=== PATIENT | male | born 1960 | race Caucasian/White ===

== ENCOUNTER → 2016-08-06 | Day surgery (SDC) | payer OTHER ==
[~2016-08-06] VITALS: Ht 162.6 cm; Wt 65.8 kg
[~2016-08-06] MED LIST: BUPIVACAINE HCL 0.25% 30 ML VIAL As Ordered ONE; BUPIVACAINE HCL 0.25% 30 ML VIAL XX ONE; LIDOCAINE 2% INJ 100 MG/5 ML SDV (FOR ANES.) As Ordered ONE; LISI10TA4 PO; LR 1,000 ML IV SCH; MEPERIDINE INJ 25 MG/ML VIAL (J2175) IV PRN; METF1000 PO; METOCLOPRAMIDE INJ 10MG/2ML VIAL (J2765) IV PRN; MIDAZOLAM INJ 2 MG/2 ML VIAL (J2250) As Ordered ONE; NORCO, ANEXSIA 5/325MG TABLET (HYDROcodone/ACETAMINOPHEN) PO PRN; ONDANSETRON 4MG/2ML VIAL (J2405) IV PRN; PERCOCET 5MG/325MG TAB As Ordered ONE; PROPOFOL 200 MG/20 ML VIAL As Ordered ONE; ROCURONIUM BROMIDE 50 MG/5 ML VIAL As Ordered ONE; fentaNYL 100 MCG/2 ML INJECTION (J3010) IV PRN; fentaNYL 250 MCG/5 ML INJECTION (J3010) As Ordered ONE
[2016-08-06] MEDS: LR 1,000 ML IV SCH (09:25)
--- NOTE | 2016-08-06 09:38 | ECGEPIP ---
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
[2016-08-06] MEDS: PERCOCET 5MG/325MG TAB PO PRN ×2 (12:27→12:39)
[2016-08-06 14:00] VITALS: BP 135/75
--- NOTE | 2016-08-07 21:16 | RO ---
DATE OF PROCEDURE: 08/07/2016 PREOPERATIVE DIAGNOSIS: Symptomatic gallstones. POSTOPERATIVE DIAGNOSIS: Symptomatic gallstones. PROCEDURE PERFORMED: Laparoscopic cholecystectomy. SURGEON: Dr. Alarcon NETWORK SUPPORT MANAGER: ANESTHESIA: General. INDICATIONS FOR PROCEDURE: Patient is a 55-year-old man with a history of upper abdominal pain and ultrasound confirming cholelithiasis. He is now for a laparoscopic cholecystectomy. OPERATIVE PROCEDURE: The patient was placed supine on the operating table. He was placed under general endotracheal anesthesia. The patient's abdomen was prepped and draped in a sterile fashion. 0.25% Marcaine was infiltrated in each of the trocar sites. A short supraumbilical midline incision was made and deepened through the fascia and peritoneum under direct vision. A Brenden cannula was inserted and the abdomen was insufflated with carbon dioxide gas. The laparoscope was inserted. Initial examination showed a normal-appearing liver. Visualized loops of the small and large bowel were normal. The gallbladder was identified in the subhepatic space. The patient was tilted to a reverse Trendelenburg position and rolled to the left. Two 5 mm trocars were placed in the right upper quadrant and a third 5 mm trocar was placed in the left upper quadrant. Graspers were inserted. The gallbladder was grasped and elevated. Dissection was carried out at the gallbladder neck. The cystic duct was clearly identified and this was dissected free circumferentially. The duct was doubly clipped with hemoclips and divided. The cholecystic artery was also clearly identified and this was clipped and divided as well. The gallbladder was then dissected free from the gallbladder bed. The gallbladder was entered in the lateral aspect of the fundus and some bile was spilled into the subhepatic space. This was all suctioned from the subhepatic space and then irrigated till clear. The dissection of the gallbladder was completed and the gallbladder was placed in an Endopouch. Final inspection of the right upper quadrant revealed no bleeding and no bile leak. There was no residual bile staining. The patient was returned to a flat position. The abdomen was deflated and the trocars were removed. The gallbladder was recovered through the Brenden site. There were some stones palpable within the gallbladder. This was sent for permanent pathology. The fascia at the Brenden site was closed with #2-0 Vicryl. The skin incisions were all closed with buried #5-0 Vicryl and Steri-Strips. Light dressings were applied. The patient tolerated the procedure well. He was awakened in the operating room, extubated and moved to the recovery room in stable condition.
== END | disposition home or self-care (01) ==
LOC: EDSTATUS 06-27 08:44 → M SDC 07:58
PROVIDERS: ATTEND Surgery
DX: K80.20 Calculus of gallbladder without cholecystitis without obstruction (principal); I10 Essential (primary) hypertension; E11.9 Type 2 diabetes mellitus without complications; G89.29 Other chronic pain; G47.30 Sleep apnea, unspecified; Z72.0 Tobacco use; Z91.010 Allergy to peanuts; Z79.899 Other long term (current) drug therapy
CPT/HCPCS: 47562; 88304; 93005; J2250; J3010

== ENCOUNTER → 2016-10-30 | Outpatient (REF) | payer OTHER, SELFPAY ==
[~2016-10-30] MED LIST changes: -BUPIVACAINE HCL 0.25% 30 ML VIAL As Ordered ONE; -BUPIVACAINE HCL 0.25% 30 ML VIAL XX ONE; -LIDOCAINE 2% INJ 100 MG/5 ML SDV (FOR ANES.) As Ordered ONE; -LR 1,000 ML IV SCH; -MEPERIDINE INJ 25 MG/ML VIAL (J2175) IV PRN; -METOCLOPRAMIDE INJ 10MG/2ML VIAL (J2765) IV PRN; -MIDAZOLAM INJ 2 MG/2 ML VIAL (J2250) As Ordered ONE; -NORCO, ANEXSIA 5/325MG TABLET (HYDROcodone/ACETAMINOPHEN) PO PRN; -ONDANSETRON 4MG/2ML VIAL (J2405) IV PRN; -PERCOCET 5MG/325MG TAB As Ordered ONE; -PROPOFOL 200 MG/20 ML VIAL As Ordered ONE; -ROCURONIUM BROMIDE 50 MG/5 ML VIAL As Ordered ONE; -fentaNYL 100 MCG/2 ML INJECTION (J3010) IV PRN; -fentaNYL 250 MCG/5 ML INJECTION (J3010) As Ordered ONE
[2016-10-30 12:03] LABS: ALBUMIN 3.4 GM/DL (3.2-5.2); ALBUMIN/GLOBULIN RATIO 1.03 (1.00-1.93); ALKALINE PHOSPHATASE 72 U/L (45-117); ALT/SGPT 21 U/L (12-78); ANION GAP 8 MEQ/L (8-16); AST/SGOT 11 U/L (15-37); BILIRUBIN,TOTAL 0.5 MG/DL (0.2-1.0); BLOOD UREA NITROGEN 13 MG/DL (7-18); CALCIUM LEVEL 8.8 MG/DL (8.5-10.1); CARBON DIOXIDE LEVEL 28 MEQ/L (21-32); CHLORIDE LEVEL 101 MEQ/L (98-107); CHOLESTEROL LEVEL 196 MG/DL (<200); GLOMERULAR FILTRATION RATE > 60.0 (>56); GLUCOSE, FASTING 174 MG/DL (70-105); POTASSIUM SERUM 4.6 MEQ/L (3.5-5.1); SODIUM LEVEL 137 MEQ/L (136-145); TOTAL PROTEIN 6.7 GM/DL (6.4-8.2); TRIGLYCERIDES LEVEL 69 MG/DL (<150)
== END ==
LOC: M SFHCCLAY 07:11
PROVIDERS: ATTEND Family Medicine
DX: E11.65 Type 2 diabetes mellitus with hyperglycemia (principal); I10 Essential (primary) hypertension

== ENCOUNTER 2018-03-08 01:03 | Emergency (ER) | payer BC, SELFPAY ==
[2018-03-08] MEDS: HYDROMORPHONE HCL 0.5 MG/ 0.5 ML SYRINGE (J1170 PER 1) IM (02:15)
[2018-03-08] MEDS: methylPREDNISolone INJ 125 MG/2 ML VIAL (J2930) IM (02:15)
== END 2018-03-08 03:01 | disposition home or self-care (01) ==
LOC: M ED 01:03
DX: M79.2 Neuralgia and neuritis, unspecified (principal)
CPT/HCPCS: J2930

== ENCOUNTER → 2018-04-06 | Outpatient (REF) | payer BC ==
[2018-04-06 17:44] LABS: TOTAL 25(OH) VITAMIN D 31.9 NG/ML (30.0-100.0); VITAMIN B12 LEVEL 595 PG/ML (247-911)
[2018-04-06 17:52] LABS: BASO % 0.3 % (0.0-1.0); EOS # 0.3 10^3/uL (0.0-0.50); EOS % 4.3 % (0.0-3.0); HEMATOCRIT 43.2 % (42.0-52.0); HEMOGLOBIN 15.6 g/dl (13.5-17.5); IMMATURE GRANULOCYTE % 0.4 % (0-3.0); LYMPH # 1.4 10^3/uL (1.5-4.5); LYMPH % 20.1 % (24.0-44.0); MEAN CORPUSCULAR HEMOGLOBIN 31.6 pg (27.0-33.0); MEAN CORPUSCULAR HGB CONC 36.1 g/dl (32.0-36.5); MEAN CORPUSCULAR VOLUME 87.4 fl (80.0-96.0); MONO # 0.5 10^3/uL (0.0-0.8); MONO % 7.5 % (0.0-5.0); NEUTROPHILS # 4.6 10^3/uL (1.8-7.7); NEUTROPHILS % 67.4 % (36.0-66.0); PLATELET COUNT, AUTOMATED 291 10^3/uL (150-450); RED BLOOD COUNT 4.94 10^6/uL (4.30-6.10); RED CELL DISTRIBUTION WIDTH 13.2 % (11.5-14.5); WHITE BLOOD COUNT 6.8 10^3/uL (4.0-10.0)
[2018-04-06 22:41] LABS: MALB URINE SIEMENS 12.5 MG/L
[2018-04-06 23:54] LABS: CREATININE, URINE 95.5 MG/DL
[2018-04-06 23:55] LABS: MAU/CREAT RATIO 0.1 MCG/MG (0.0-30.0)
[2018-04-07 00:58] LABS: ALBUMIN 4.2 GM/DL (3.2-5.2); ALKALINE PHOSPHATASE 89 U/L (45-117); ALT/SGPT 27 U/L (12-78); ANION GAP 9 MEQ/L (8-16); AST/SGOT 10 U/L (7-37); BILIRUBIN,TOTAL 0.7 MG/DL (0.2-1.0); BLOOD UREA NITROGEN 12 MG/DL (7-18); CALCIUM LEVEL 9.3 MG/DL (8.5-10.1); CARBON DIOXIDE LEVEL 28 MEQ/L (21-32); CHLORIDE LEVEL 101 MEQ/L (98-107); CREATININE FOR GFR 0.74 MG/DL (0.70-1.30); GLOMERULAR FILTRATION RATE > 60.0 (>56); GLUCOSE, FASTING 312 MG/DL (70-100); HDL CHOLESTEROL 66 MG/DL (>40); POTASSIUM SERUM 4.8 MEQ/L (3.5-5.1); SODIUM LEVEL 138 MEQ/L (136-145); TOTAL PROTEIN 7.2 GM/DL (6.4-8.2); TRIGLYCERIDES LEVEL 91 MG/DL (<150)
[2018-04-07 01:38] LABS: ESTIMATED AVERAGE GLUCOSE 232 MG/DL (60-110); HEMOGLOBIN A1c 9.7 %
[2018-04-07 01:42] LABS: CHOLESTEROL LEVEL 213 MG/DL (<200); CHOLESTEROL RISK RATIO 3.227 (<5); LDL CHOLESTEROL 129 MG/DL (<100); NON-HDL-C 147 MG/DL
== END ==
LOC: M SFHCCAPE 07:40
DX: E11.65 Type 2 diabetes mellitus with hyperglycemia (principal); E78.2 Mixed hyperlipidemia; I10 Essential (primary) hypertension; R53.83 Other fatigue
CPT/HCPCS: 84443

== ENCOUNTER → 2018-09-02 | Outpatient (REF) | payer BC ==
[~2018-09-02] MED LIST changes: -METF1000 PO; +METF10004 PO; +PRED20TA PO
[2018-09-02 16:57] LABS: ALBUMIN 3.8 GM/DL (3.2-5.2); ALT/SGPT 18 U/L (12-78); BILIRUBIN,TOTAL 0.4 MG/DL (0.2-1.0); BLOOD UREA NITROGEN 12 MG/DL (7-18); CALCIUM LEVEL 8.6 MG/DL (8.5-10.1); CARBON DIOXIDE LEVEL 29 MEQ/L (21-32); CHLORIDE LEVEL 97 MEQ/L (98-107); CHOLESTEROL LEVEL 136 MG/DL (<200); CHOLESTEROL RISK RATIO 2.305 (<5); GLOMERULAR FILTRATION RATE > 60.0 (>56); GLUCOSE, FASTING 250 MG/DL (70-100); HDL CHOLESTEROL 59 MG/DL (>40); LDL CHOLESTEROL 66 MG/DL (<100); NON-HDL-C 77 MG/DL; POTASSIUM SERUM 4.3 MEQ/L (3.5-5.1); SODIUM LEVEL 134 MEQ/L (136-145); TOTAL PROTEIN 6.7 GM/DL (6.4-8.2); TRIGLYCERIDES LEVEL 54 MG/DL (<150)
[2018-09-02 17:11] LABS: HEMOGLOBIN A1c 8.3 %
== END ==
LOC: M SFHCCAPE 07:06
PROVIDERS: ATTEND Physician Assistant
DX: E11.65 Type 2 diabetes mellitus with hyperglycemia (principal); E78.2 Mixed hyperlipidemia

== ENCOUNTER → 2018-12-08 | Outpatient (REF) | payer BC ==
[2018-12-08 17:21] LABS: ALBUMIN 3.7 GM/DL (3.2-5.2); ALT/SGPT 29 U/L (12-78); BILIRUBIN,TOTAL 0.4 MG/DL (0.2-1.0); BLOOD UREA NITROGEN 11 MG/DL (7-18); CALCIUM LEVEL 8.7 MG/DL (8.5-10.1); CARBON DIOXIDE LEVEL 28 MEQ/L (21-32); CHLORIDE LEVEL 99 MEQ/L (98-107); CREATININE FOR GFR 0.76 MG/DL (0.70-1.30); GLOMERULAR FILTRATION RATE > 60.0 (>56); GLUCOSE, FASTING 304 MG/DL (70-100); POTASSIUM SERUM 4.5 MEQ/L (3.5-5.1); SODIUM LEVEL 135 MEQ/L (136-145); TOTAL PROTEIN 7.2 GM/DL (6.4-8.2)
[2018-12-08 17:39] LABS: MALB URINE SIEMENS 32.3 MG/L; MAU/CREAT RATIO 22.9 MCG/MG (0.0-30.0)
[2018-12-08 21:42] LABS: HEMOGLOBIN A1c 9.4 %
== END ==
LOC: M SFHCCAPE 07:04
PROVIDERS: ATTEND Physician Assistant
DX: E11.65 Type 2 diabetes mellitus with hyperglycemia (principal)

== ENCOUNTER → 2019-04-12 | Outpatient (REF) | payer BC ==
[2019-04-12 17:45] LABS: ALBUMIN 3.6 GM/DL (3.2-5.2); ALT/SGPT 18 U/L (12-78); BILIRUBIN,TOTAL 0.4 MG/DL (0.2-1.0); BLOOD UREA NITROGEN 15 MG/DL (7-18); CALCIUM LEVEL 9.1 MG/DL (8.5-10.1); CARBON DIOXIDE LEVEL 26 MEQ/L (21-32); CHLORIDE LEVEL 98 MEQ/L (98-107); CREATININE FOR GFR 0.86 MG/DL (0.70-1.30); GLOMERULAR FILTRATION RATE > 60.0 (>56); GLUCOSE, FASTING 423 MG/DL (70-100); POTASSIUM SERUM 4.9 MEQ/L (3.5-5.1); SODIUM LEVEL 133 MEQ/L (136-145); TOTAL PROTEIN 6.6 GM/DL (6.4-8.2)
[2019-04-12 18:52] LABS: HEMOGLOBIN A1c 7.9 %
== END ==
LOC: M SFHCCAPE 07:46
PROVIDERS: ATTEND Physician Assistant
DX: E11.65 Type 2 diabetes mellitus with hyperglycemia (principal)

== ENCOUNTER → 2019-07-13 | Outpatient (REF) | payer BC ==
[2019-07-13 16:57] LABS: ALBUMIN 3.9 GM/DL (3.2-5.2); ALT/SGPT 14 U/L (12-78); BILIRUBIN,TOTAL 0.5 MG/DL (0.2-1.0); BLOOD UREA NITROGEN 16 MG/DL (7-18); CALCIUM LEVEL 8.8 MG/DL (8.5-10.1); CARBON DIOXIDE LEVEL 27 MEQ/L (21-32); CHLORIDE LEVEL 103 MEQ/L (98-107); CHOLESTEROL LEVEL 182 MG/DL (<200); CHOLESTEROL RISK RATIO 2.843 (<5); CREATININE FOR GFR 0.79 MG/DL (0.70-1.30); GLOMERULAR FILTRATION RATE > 60.0 (>56); GLUCOSE, FASTING 154 MG/DL (70-100); HDL CHOLESTEROL 64 MG/DL (>40); LDL CHOLESTEROL 106 MG/DL (<100); NON-HDL-C 118 MG/DL; POTASSIUM SERUM 4.5 MEQ/L (3.5-5.1); SODIUM LEVEL 138 MEQ/L (136-145); TOTAL PROTEIN 7.1 GM/DL (6.4-8.2); TRIGLYCERIDES LEVEL 60 MG/DL (<150)
[2019-07-13 21:09] LABS: HEMOGLOBIN A1c 6.8 %
== END ==
LOC: M SFHCCAPE 07:28
PROVIDERS: ATTEND Physician Assistant
DX: E11.65 Type 2 diabetes mellitus with hyperglycemia (principal); E78.2 Mixed hyperlipidemia

== ENCOUNTER → 2019-07-16 | Outpatient (CLI) | payer BC ==
--- NOTE | 2019-07-16 09:31 | REP ---
INGUINAL ULTRASOUND: Real-time sonographic evaluation of inguinal canals performed at rest and with Valsalva maneuver. No inguinal hernia is seen. There is no evidence of cystic or solid mass. No fluid collection is seen. IMPRESSION: No sonographic evidence of inguinal hernia or mass bilaterally. Electronically Signed by Collin Quintanilla MD 07/16/2019 04:41 P
== END ==
LOC: M RAD 07:55
PROVIDERS: ATTEND Physician Assistant
DX: R19.09 Other intra-abdominal and pelvic swelling, mass and lump (principal)

== ENCOUNTER 2020-03-19 19:09 | Emergency (ER) | payer BC ==
[~2020-03-19] VITALS: Ht 162.6 cm; Wt 69.4 kg
[2020-03-19] MEDS ORDERED: LISI10TA4 (19:19)
[2020-03-19] MEDS ORDERED: MELO15TA28 (19:19)
[2020-03-19] MEDS ORDERED: METF10004 (19:19)
[2020-03-19] MEDS ORDERED: GABA600T4 (19:19)
[2020-03-19] MEDS ORDERED: TIZA4TAB4 (19:19)
[2020-03-19 20:10] LABS: BASO % 0.2 % (0.0-1.0); EOS # 0.2 10^3/uL (0.0-0.5); EOS % 2.8 % (0.0-3.0); HEMATOCRIT 36.6 % (42.0-52.0); HEMOGLOBIN 13.2 g/dl (13.5-17.5); LYMPH # 1.5 10^3/uL (1.5-5.0); MEAN CORPUSCULAR HEMOGLOBIN 31.7 pg (27.0-33.0); MEAN CORPUSCULAR HGB CONC 36.1 g/dl (32.0-36.5); MONO # 0.8 10^3/uL (0.0-0.8); MONO % 8.9 % (0.0-5.0); NEUTROPHILS % 69.6 % (36.0-66.0); PLATELET COUNT, AUTOMATED 246 10^3/uL (150-450); RED BLOOD COUNT 4.16 10^6/uL (4.30-6.10); WHITE BLOOD COUNT 8.6 10^3/uL (4.0-10.0)
[2020-03-19 20:20] LABS: INR 0.97; PROTHROMBIN TIME 13.1 SECONDS (11.8-14.0)
[2020-03-19 20:38] LABS: ALBUMIN 3.7 GM/DL (3.2-5.2); ALT/SGPT 17 U/L (12-78); BILIRUBIN,DIRECT 0.1 MG/DL (0.0-0.2); BILIRUBIN,TOTAL 0.3 MG/DL (0.2-1.0); CK-MB VALUE MASS 2.6 NG/ML (<3.6); CPK CREATINE PHOSPHOKINASE 99 U/L (39-308); LIPASE 142 U/L (73-393); MB/CK RELATIVE INDEX 2.63 (< OR =4); TOTAL PROTEIN 6.9 GM/DL (6.4-8.2); TROPONIN I < 0.02 NG/ML (< 0.10)
[2020-03-19] MEDS ORDERED: ISOVUE-370 76% 100ML VIAL As Ordered ONE (21:02)
--- NOTE | 2020-03-19 22:16 | REPVR ---
PROCEDURE INFORMATION: Exam: CT Abdomen And Pelvis With Contrast Exam date and time: 03/19/2020 9:40 PM Age: 59 years old Clinical indication: Abdominal pain; Generalized; Additional info: Abd pain x1 month TECHNIQUE: Imaging protocol: Computed tomography of the abdomen and pelvis with intravenous contrast. Radiation optimization: All CT scans at this facility use at least one of these dose optimization techniques: automated exposure control; mA and/or kV adjustment per patient size (includes targeted exams where dose is matched to clinical indication); or iterative reconstruction. Contrast material: ISOVUE 370; Contrast volume: 100 ml; Contrast route: INTRAVENOUS (IV); COMPARISON: Pelvis, limited US 07/16/2019 8:09 AM FINDINGS: Lungs: No suspicious mass or airspace process in the visualized lung bases. Liver: Right hepatic lobe posterior dome subcapsular demonstrates a 3.7 x 1.4 x 1.5 cm lesion with focal bile duct dilatation. This appears adjacent to the portal vessels but does not appear to be related to vascular thrombosis Gallbladder and bile ducts: Gallbladder is surgically absent. Pancreas: Pancreas appears normal. No focal mass or peripancreatic inflammation. Spleen: Spleen appears homogeneous without focal mass. Adrenals: Adrenal glands are normal in appearance. Kidneys and ureters: Kidneys appear normal, with no stone, solid mass or hydronephrosis. Stomach and bowel: No evidence of small bowel obstruction. Diverticular changes are present within the colon without inflammation. Appendix: Normal caliber appendix is identified, with no adjacent inflammation. Intraperitoneal space: No pneumoperitoneum. Vasculature: No aortic aneurysm. Main portal and splenic veins enhance normally. Lymph nodes: No enlarged lymph nodes. Bladder: Urinary bladder appears normal. Reproductive: No enlargement of the prostate. Bones/joints: Bony structures show no acute fracture or destructive process. Soft tissues: Fat containing umbilical hernia is present. IMPRESSION: Subcapsular posterior right lobe hepatic ovoid lesion with adjacent bile duct dilatation. Appearance is not pathognomonic for any particular entity. Inflammatory or neoplastic process could give this appearance. It could represent intraductal papillary neoplasm of bile duct. Consider hepatic MRI when clinically feasible Electronically signed by: Shad Duarte On 03/19/2020 22:17:07 PM
[2020-03-19 23:14] VITALS: BP 150/89
--- NOTE | 2020-04-10 17:25 | ECGEPIP ---
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
== END 2020-03-19 23:14 | disposition home or self-care (01) ==
LOC: M ED 19:09
DX: K76.9 Liver disease, unspecified (principal); E11.9 Type 2 diabetes mellitus without complications; G89.29 Other chronic pain; M54.9 Dorsalgia, unspecified; Z79.899 Other long term (current) drug therapy; Z79.84 Long term (current) use of oral hypoglycemic drugs; Z91.010 Allergy to peanuts; F17.290 Nicotine dependence, other tobacco product, uncomplicated
CPT/HCPCS: 36415; 74177; 80047; 80076; 81001; 82550; 82553; 83690; 84484; 85025; 85610; 85730; 93005; 99284; Q9967

== ENCOUNTER → 2020-03-23 | Outpatient (REF) | payer BC ==
[~2020-03-23] MED LIST changes: +GABA600T4; +LISI10TA4; +MELO15TA28; +METF10004; +TIZA4TAB4
[2020-03-23 15:31] LABS: BLOOD UREA NITROGEN 11 MG/DL (7-18); CREATININE FOR GFR 0.89 MG/DL (0.70-1.30); GLOMERULAR FILTRATION RATE > 60.0 (>56)
== END ==
LOC: M LABDRAWC 07:12
PROVIDERS: ATTEND Physician Assistant
DX: D37.6 Neoplasm of uncertain behavior of liver, gallbladder and bile ducts (principal)

== ENCOUNTER → 2020-03-24 | Outpatient (CLI) | payer BC ==
[~2020-03-24] MED LIST changes: +PROHANCE 279.3MG/ML 15ML VIAL As Ordered ONE
--- NOTE | 2020-03-24 09:21 | REPVR ---
PROCEDURE INFORMATION: Exam: MR Abdomen Without and With Contrast Exam date and time: 03/24/2020 8:26 AM Age: 59 years old Clinical indication: Abnormal findings; Abnormal radiologic finding of the abdomen; Radiologic exam and body structure: CT abd/pel; Additional info: Liver lesion, with bile duct dilation TECHNIQUE: Imaging protocol: MR of the abdomen without and with intravenous contrast. Contrast material: PROHANCE; Contrast volume: 13 ml; Contrast route: INTRAVENOUS (IV); COMPARISON: CT ABD/PEL W/IV CONTRAST ONLY 03/19/2020 9:28 PM FINDINGS: Liver: Posterior medial hepatic segment 8 geographic atrophy with biliary duct ectasia redemonstrated. No mass identified. Delayed, wedge-like postcontrast enhancement. Gallbladder and bile ducts: The gallbladder is surgically absent. Pancreas: 3.9 mm pancreatic uncinate process cyst. Four pancreatic tail cysts, largest 3.8 mm. Small pancreatic cysts. Spleen: Unremarkable. No splenomegaly. Adrenals: Unremarkable. No mass. Kidneys and ureters: Unremarkable. No solid mass. No hydronephrosis. Stomach and bowel: Visualized stomach and intestines are unremarkable. Intraperitoneal space: No free fluid. Arteries: No abdominal aortic aneurysm. Bones/joints: 14.7 mm T12 vertebral body hemangioma. Soft tissues: Unremarkable. IMPRESSION: 1. Focal hepatic geographic atrophy with biliary duct ectasia redemonstrated, presumably result of prior vascular or traumatic insult. No mass identified. 2. Small pancreatic cysts. Recommend CT or MRI in 2-3 years, for exclusion of intraductal papillary mucinous neoplasia (Vish et al, Pancreatology 12 (2012) [id number]). 3. Prior cholecystectomy. Electronically signed by: Gopi Whitlock On 03/24/2020 09:21:14 AM
== END ==
LOC: M RAD 07:13
PROVIDERS: ATTEND Physician Assistant
DX: D37.6 Neoplasm of uncertain behavior of liver, gallbladder and bile ducts (principal); K86.2 Cyst of pancreas
CPT/HCPCS: 74183; A9576

== ENCOUNTER → 2020-04-26 | Outpatient (CLI) | payer BC ==
[~2020-04-26] MED LIST changes: -PROHANCE 279.3MG/ML 15ML VIAL As Ordered ONE
--- NOTE | 2020-05-03 08:31 | REP ---
TWO-VIEW CHEST HISTORY: Chest wall pain, right upper quadrant abdominal pain. TECHNIQUE: Two views of the chest are performed. COMPARISON: I have no prior study for comparison. FINDINGS: I see no evidence of acute infiltrate. Pleural thickening is seen inferiorly on the right. Heart is normal in size and there is mild tortuosity of the thoracic aorta. The mediastinal silhouette is otherwise unremarkable. There are multiple old healed rib fractures superiorly on the right. There are mild degenerative changes of the spine. I see no other significant finding. IMPRESSION: Multiple old healed right rib fractures with mild pleural thickening at the right costophrenic angle. No evidence of acute pulmonary disease. MTDD
== END ==
LOC: M CLY 10:23
PROVIDERS: ATTEND Physician Assistant
DX: R07.89 Other chest pain (principal); Z87.81 Personal history of (healed) traumatic fracture

== ENCOUNTER → 2020-05-24 | Outpatient (REF) | payer BC ==
[2020-05-24 11:23] LABS: BASO % 0.3 % (0.0-1.0); EOS # 0.4 10^3/uL (0.0-0.5); EOS % 5.6 % (0.0-3.0); HEMATOCRIT 38.9 % (42.0-52.0); HEMOGLOBIN 13.5 g/dl (13.5-17.5); LYMPH # 1.3 10^3/uL (1.5-5.0); LYMPH % 20.7 % (24.0-44.0); MEAN CORPUSCULAR HEMOGLOBIN 31.8 pg (27.0-33.0); MEAN CORPUSCULAR HGB CONC 34.7 g/dl (32.0-36.5); MEAN CORPUSCULAR VOLUME 91.5 fl (80.0-96.0); MONO # 0.6 10^3/uL (0.0-0.8); MONO % 9.1 % (0.0-5.0); NEUTROPHILS # 4.1 10^3/uL (1.5-8.5); PLATELET COUNT, AUTOMATED 269 10^3/uL (150-450); RED BLOOD COUNT 4.25 10^6/uL (4.30-6.10); WHITE BLOOD COUNT 6.4 10^3/uL (4.0-10.0)
[2020-05-24 11:52] LABS: ALBUMIN 3.6 GM/DL (3.2-5.2); ALT/SGPT 22 U/L (12-78); BILIRUBIN,TOTAL 0.5 MG/DL (0.2-1.0); BLOOD UREA NITROGEN 19 MG/DL (7-18); CALCIUM LEVEL 8.9 MG/DL (8.5-10.1); CARBON DIOXIDE LEVEL 27 MEQ/L (21-32); CHLORIDE LEVEL 104 MEQ/L (98-107); CHOLESTEROL LEVEL 195 MG/DL (<200); CHOLESTEROL RISK RATIO 3.679 (<5); CREATININE FOR GFR 0.84 MG/DL (0.70-1.30); GLOMERULAR FILTRATION RATE > 60.0 (>56); GLUCOSE, FASTING 140 MG/DL (70-100); HDL CHOLESTEROL 53 MG/DL (>40); LDL CHOLESTEROL 112 MG/DL (<100); NON-HDL-C 142 MG/DL; POTASSIUM SERUM 4.8 MEQ/L (3.5-5.1); SODIUM LEVEL 135 MEQ/L (136-145); TRIGLYCERIDES LEVEL 149 MG/DL (<150)
[2020-05-24 11:57] LABS: MALB URINE SIEMENS 59.5 MG/L; MAU/CREAT RATIO 11.8 MCG/MG (0.0-30.0)
[2020-05-24 14:28] LABS: HEMOGLOBIN A1c 6.8 %
== END ==
LOC: M SFHCCLAY 07:52
PROVIDERS: ATTEND Physician Assistant
DX: E11.65 Type 2 diabetes mellitus with hyperglycemia (principal); E78.2 Mixed hyperlipidemia

== ENCOUNTER → 2020-06-26 | Outpatient (CLI) | payer BC ==
--- NOTE | 2020-06-26 22:00 | REP ---
INDICATION: CHEST WALL PAIN PLEURAL THICKENING COMPARISON: None TECHNIQUE: Axial noncontrast images from the thoracic inlet to the upper abdomen with coronal and sagittal reformations. This CT examination was performed using the following dose reduction techniques: Automated exposure control, adjustment of mA and/or kv according to the patient's size, and use of iterative reconstruction technique. FINDINGS: The bilateral lung narayan are relatively well aerated and essentially clear. Old healed right rib fractures are identified with subtle adjacent areas of pleural scarring. 2.5 Mm noncalcified nodule in the right middle lobe (series 201; image 52). No further consolidation, suspicious nodule or mass lesion. No pleural effusion. No pneumothorax. Tracheobronchial tree is patent. No significant adenopathy. Minimal atherosclerotic changes to the thoracic aorta and coronary arteries noted without aortic aneurysm or cardiomegaly. No pericardial effusion. Limited upper abdomen demonstrates normal bilateral adrenal glands and evidence for prior cholecystectomy. IMPRESSION: 1. Old right rib fractures and adjacent mild pleural scarring. 2. 2.5 mm noncalcified nodule in the right middle lobe. Low risk patients require no further investigation while high risk patients may warrant 12 month follow-up examination. <Electronically signed by Trino Rhodes > 06/26/20 [id number]
== END ==
LOC: M RAD 16:59
PROVIDERS: ATTEND Physician Assistant
DX: J92.9 Pleural plaque without asbestos (principal); R10.11 Right upper quadrant pain; R07.89 Other chest pain

== ENCOUNTER → 2022-03-25 | Outpatient (REF) | payer BC ==
[~2022-03-25] MED LIST changes: +LISI10TA22; +LISI10TA22 PO; -LISI10TA4; -LISI10TA4 PO; +TIZA10TA; -TIZA4TAB4
[2022-03-25 17:27] LABS: BASO % 0.3 % (0.0-1.0); EOS # 0.3 10^3/uL (0.0-0.5); EOS % 4.3 % (0.0-3.0); HEMATOCRIT 42.1 % (42.0-52.0); HEMOGLOBIN 14.8 g/dl (13.5-17.5); LYMPH # 0.9 10^3/uL (1.5-5.0); LYMPH % 13.5 % (24.0-44.0); MEAN CORPUSCULAR HEMOGLOBIN 31.4 pg (27.0-33.0); MEAN CORPUSCULAR HGB CONC 35.2 g/dl (32.0-36.5); MEAN CORPUSCULAR VOLUME 89.4 fl (80.0-96.0); MONO # 0.5 10^3/uL (0.0-0.8); MONO % 7.5 % (2.0-8.0); NEUTROPHILS # 5.1 10^3/uL (1.5-8.5); NEUTROPHILS % 74.1 % (36.0-66.0); PLATELET COUNT, AUTOMATED 264 10^3/uL (150-450); RED BLOOD COUNT 4.71 10^6/uL (4.30-6.10); WHITE BLOOD COUNT 6.8 10^3/uL (4.0-10.0)
[2022-03-25 18:49] LABS: CREATININE, URINE 96.3 MG/DL; MAU/CREAT RATIO 10.3 MCG/MG (0.0-30.0)
[2022-03-25 20:03] LABS: ALBUMIN 3.4 GM/DL (3.2-5.2); ALT/SGPT 19 U/L (12-78); BILIRUBIN,TOTAL 0.5 MG/DL (0.2-1.0); BLOOD UREA NITROGEN 14 MG/DL (7-18); CALCIUM LEVEL 9.3 MG/DL (8.8-10.2); CARBON DIOXIDE LEVEL 28 MEQ/L (21-32); CHLORIDE LEVEL 100 MEQ/L (98-107); CHOLESTEROL LEVEL 194 MG/DL (<200); CREATININE FOR GFR 0.86 MG/DL (0.70-1.30); GLOMERULAR FILTRATION RATE > 60.0 (>49); GLUCOSE, FASTING 326 MG/DL (70-100); HDL CHOLESTEROL 52 MG/DL (>40); LDL CHOLESTEROL 118 MG/DL (<100); NON-HDL-C 142 MG/DL; POTASSIUM SERUM 4.5 MEQ/L (3.5-5.1); SODIUM LEVEL 134 MEQ/L (136-145); TOTAL PROTEIN 7.1 GM/DL (6.4-8.2); TRIGLYCERIDES LEVEL 121 MG/DL (<150)
[2022-03-25 20:36] LABS: HEMOGLOBIN A1c 10.5 %
[2022-03-25 20:42] LABS: TOTAL 25(OH) VITAMIN D 26.4 NG/ML (30.0-100.0)
== END ==
LOC: M SFHCCAPE 07:29
PROVIDERS: ATTEND Physician Assistant
DX: Z00.00 Encounter for general adult medical examination without abnormal findings (principal); Z79.899 Other long term (current) drug therapy

== ENCOUNTER → 2022-05-10 | Outpatient (REF) | payer BC ==
[2022-05-10 11:54] LABS: HEMOGLOBIN A1c 8.3 %
[2022-05-10 12:31] LABS: BLOOD UREA NITROGEN 16 MG/DL (7-18); CREATININE FOR GFR 0.82 MG/DL (0.70-1.30); GLOMERULAR FILTRATION RATE > 60.0 (>49)
== END ==
LOC: M SFHCCLAY 07:17
PROVIDERS: ATTEND Physician Assistant
DX: E11.65 Type 2 diabetes mellitus with hyperglycemia (principal); K86.2 Cyst of pancreas

== ENCOUNTER → 2022-05-13 | Outpatient (CLI) | payer BC ==
[~2022-05-13] MED LIST changes: +PROHANCE 279.3MG/ML 15ML VIAL ONE
== END ==
LOC: M PLAIMG 12:30
PROVIDERS: ATTEND Physician Assistant
DX: K86.2 Cyst of pancreas (principal)

== ENCOUNTER → 2022-07-03 | Outpatient (REF) | payer BC ==
[~2022-07-03] MED LIST changes: -PROHANCE 279.3MG/ML 15ML VIAL ONE
[2022-07-03 18:16] LABS: MAGNESIUM LEVEL 1.5 MG/DL (1.8-2.4)
[2022-07-03 18:18] LABS: ALBUMIN 3.7 G/DL (3.2-5.2); ALKALINE PHOSPHATASE 61 U/L (46-116); ALT/SGPT 18 U/L (7.0-40); AST/SGOT 14 U/L (<34); BILIRUBIN,TOTAL 0.5 MG/DL (0.3-1.2); BLOOD UREA NITROGEN 17 MG/DL (9-23); CARBON DIOXIDE LEVEL 28 MMOL/L (20-31); CHLORIDE LEVEL 102 MMOL/L (98-107); CHOLESTEROL LEVEL 119 MG/DL (<200); CHOLESTEROL RISK RATIO 2.42 (<5); CREATININE FOR GFR 0.83 MG/DL (0.70-1.30); GLOMERULAR FILTRATION RATE > 60.0 (>49); GLUCOSE, FASTING 152 MG/DL (74-106); HDL CHOLESTEROL 49.1 MG/DL (>40); LDL CHOLESTEROL 58.7 MG/DL (<100); NON-HDL-C 70 MG/DL; POTASSIUM SERUM 5.2 MMOL/L (3.5-5.1); SODIUM LEVEL 135 MMOL/L (136-145); TOTAL PROTEIN 6.6 G/DL (5.7-8.2); TRIGLYCERIDES LEVEL 56 MG/DL (<150)
[2022-07-03 23:33] LABS: HEMOGLOBIN A1c 6.9 % (4.0-6.0)
== END ==
LOC: M SFHCCAPE 07:31
PROVIDERS: ATTEND Physician Assistant
DX: Z00.00 Encounter for general adult medical examination without abnormal findings (principal); E78.2 Mixed hyperlipidemia; I10 Essential (primary) hypertension; E11.65 Type 2 diabetes mellitus with hyperglycemia
CPT/HCPCS: 80053; 80061; 83036; 83735; G0103

== ENCOUNTER → 2022-07-15 | Outpatient (CLI) | payer BC ==
[~2022-07-15] MED LIST changes: -GABA600T4; +GABA600T4 PO; -LISI10TA22; -MELO15TA28; +MELO15TA28 PO; -METF10004
== END ==
LOC: M LABSMTC 09:33
PROVIDERS: ATTEND Anesthesiology
DX: Z01.812 Encounter for preprocedural laboratory examination (principal); Z11.52 Encounter for screening for COVID-19

== ENCOUNTER 2022-07-19 10:47 | Day surgery (SDC) | payer BC ==
[~2022-07-19] VITALS: Ht 162.6 cm; Wt 66.3 kg
[~2022-07-19 10:47] MED LIST changes: +NS 1,000 ML IV ONE
[2022-07-19] MEDS ORDERED: D5W/0.45% SODIUM CHLORIDE 1,000 ML IV SCH (12:20)
[2022-07-19 13:05] VITALS: BP 97/57
== END 2022-07-19 13:16 | disposition home or self-care (01) ==
LOC: M OPP 10:47
PROVIDERS: ATTEND Surgery
DX: R19.5 Other fecal abnormalities (principal); K64.2 Third degree hemorrhoids; K57.30 Diverticulosis of large intestine without perforation or abscess without bleeding; Z80.0 Family history of malignant neoplasm of digestive organs; Z79.52 Long term (current) use of systemic steroids; Z79.84 Long term (current) use of oral hypoglycemic drugs; Z79.899 Other long term (current) drug therapy; Z91.010 Allergy to peanuts; E11.9 Type 2 diabetes mellitus without complications; G47.33 Obstructive sleep apnea (adult) (pediatric); I10 Essential (primary) hypertension; Z87.891 Personal history of nicotine dependence

== ENCOUNTER → 2022-10-03 | Outpatient (CLI) | payer BC ==
[~2022-10-03] MED LIST changes: -NS 1,000 ML IV ONE
== END ==
LOC: M LABSMTC 11:24
PROVIDERS: ATTEND Anesthesiology
DX: Z01.812 Encounter for preprocedural laboratory examination (principal); Z20.822 Contact with and (suspected) exposure to COVID-19

== ENCOUNTER 2022-10-08 06:20 | Day surgery (SDC) | payer BC ==
[~2022-10-08] VITALS: Ht 162.6 cm; Wt 69.4 kg
[~2022-10-08 06:20] MED LIST changes: +JARD1TAB PO; +PROPARACAINE 0.5% OPHTH SOL 15ML OS ONE
[2022-10-08] MEDS ORDERED: LIDOCAINE 1% SDV 5ML VIAL As Ordered ONE (06:39)
[2022-10-08] MEDS ORDERED: CEFUROXIME 1MG/0.1ML INTRACAMERAL INJ As Ordered ONE (06:40)
[2022-10-08] MEDS ORDERED: BSS IRR 500ML/OMIDRIA 4ML IRR BAG (OR ONLY) As Ordered ONE (06:52)
[2022-10-08] MEDS ORDERED: MIDAZOLAM INJ 2MG/2ML VIAL As Ordered ONE (07:00)
[2022-10-08] MEDS ORDERED: fentaNYL 100 MCG/2 ML INJECTION As Ordered ONE (07:00)
[2022-10-08] MEDS: CYCLOPENTOLATE 1% OPHTH SOLN 2ML BTL OS SCH ×3 (08:06→08:54)
[2022-10-08] MEDS: OFLOXACIN 0.3 % (OCUFLOX) OPTH SOL 5ML OS SCH ×3 (08:06→08:54)
[2022-10-08] MEDS: PHENYLEPHRINE 2.5% OPHTH SOL 2ML OS SCH ×2 (08:07→08:54)
[2022-10-08] MEDS: TROPICAMIDE 1% OPHTH SOLN 15ML OS SCH ×2 (08:07→08:54)
[2022-10-08 08:39] VITALS: BP 136/77
== END 2022-10-08 09:03 | disposition home or self-care (01) ==
LOC: M SDC 06:20
PROVIDERS: ATTEND Ophthalmology
DX: H25.12 Age-related nuclear cataract, left eye (principal); I10 Essential (primary) hypertension; R01.1 Cardiac murmur, unspecified; E11.9 Type 2 diabetes mellitus without complications; G47.30 Sleep apnea, unspecified; Z91.010 Allergy to peanuts; Z79.899 Other long term (current) drug therapy; Z79.84 Long term (current) use of oral hypoglycemic drugs
CPT/HCPCS: 66984; J0697; J1097; J2250; J3010; V2632

== ENCOUNTER → 2022-10-17 | Outpatient (REF) | payer BC ==
[~2022-10-17] MED LIST changes: -PROPARACAINE 0.5% OPHTH SOL 15ML OS ONE
[2022-10-17 17:27] LABS: BASO % 0.3 % (0.0-1.0); EOS # 0.3 10^3/uL (0.0-0.5); EOS % 4.9 % (0.0-3.0); HEMATOCRIT 39.7 % (42.0-52.0); HEMOGLOBIN 13.6 g/dl (13.5-17.5); LYMPH # 1.3 10^3/uL (1.5-5.0); LYMPH % 19.6 % (24.0-44.0); MEAN CORPUSCULAR HEMOGLOBIN 30.7 pg (27.0-33.0); MEAN CORPUSCULAR HGB CONC 34.3 g/dl (32.0-36.5); MEAN CORPUSCULAR VOLUME 89.6 fl (80.0-96.0); MONO # 0.5 10^3/uL (0.0-0.8); MONO % 7.8 % (2.0-8.0); NEUTROPHILS # 4.5 10^3/uL (1.5-8.5); NEUTROPHILS % 67.1 % (36.0-66.0); PLATELET COUNT, AUTOMATED 258 10^3/uL (150-450); RED BLOOD COUNT 4.43 10^6/uL (4.30-6.10); WHITE BLOOD COUNT 6.7 10^3/uL (4.0-10.0)
[2022-10-17 17:38] LABS: HEMOGLOBIN A1c 7.8 % (4.0-6.0)
[2022-10-17 17:55] LABS: ALBUMIN 3.6 G/DL (3.2-5.2); ALKALINE PHOSPHATASE 72 U/L (46-116); ALT/SGPT 23 U/L (7.0-40); AST/SGOT 15 U/L (<34); BILIRUBIN,TOTAL 0.5 MG/DL (0.3-1.2); BLOOD UREA NITROGEN 22 MG/DL (9-23); CALCIUM LEVEL 9.2 MG/DL (8.3-10.6); CARBON DIOXIDE LEVEL 27 MMOL/L (20-31); CHLORIDE LEVEL 102 MMOL/L (98-107); CREATININE FOR GFR 0.84 MG/DL (0.70-1.30); GLOMERULAR FILTRATION RATE > 60.0 (>49); GLUCOSE, FASTING 178 MG/DL (74-106); MAGNESIUM LEVEL 1.6 MG/DL (1.8-2.4); POTASSIUM SERUM 5.2 MMOL/L (3.5-5.1); SODIUM LEVEL 136 MMOL/L (136-145); TOTAL PROTEIN 6.5 G/DL (5.7-8.2)
== END ==
LOC: M SFHCCAPE 07:16
PROVIDERS: ATTEND Physician Assistant
DX: E83.42 Hypomagnesemia (principal); E11.65 Type 2 diabetes mellitus with hyperglycemia

== ENCOUNTER → 2024-09-20 | Outpatient (REF) | payer OTHER ==
[~2024-09-20] MED LIST changes: +GABA-1490 PO; -GABA600T4 PO
[2024-09-20 16:46] LABS: BASO % 0.3 % (0.0-1.0); EOS # 0.3 10^3/uL (0.0-0.5); EOS % 4.2 % (0.0-3.0); HEMATOCRIT 42.9 % (42.0-52.0); HEMOGLOBIN 15.1 g/dl (13.5-17.5); LYMPH # 1.4 10^3/uL (1.5-5.0); LYMPH % 22.8 % (24.0-44.0); MEAN CORPUSCULAR HEMOGLOBIN 31.6 pg (27.0-33.0); MEAN CORPUSCULAR HGB CONC 35.2 g/dl (32.0-36.5); MEAN CORPUSCULAR VOLUME 89.7 fl (80.0-96.0); MONO # 0.5 10^3/uL (0.0-0.8); MONO % 7.6 % (2.0-8.0); NEUTROPHILS % 64.8 % (36.0-66.0); PLATELET COUNT, AUTOMATED 245 10^3/uL (150-450); RED BLOOD COUNT 4.78 10^6/uL (4.30-6.10); WHITE BLOOD COUNT 6.2 10^3/uL (4.0-10.0)
[2024-09-20 17:08] LABS: HEMOGLOBIN A1c 9.2 % (4.0-6.0)
[2024-09-20 17:13] LABS: PSA SCREENING 0.63 NG/ML (< 4.00)
[2024-09-20 17:14] LABS: CREATININE, URINE 85.3 MG/DL; MAU/CREAT RATIO 43.3 MCG/MG (0.0-30.0)
[2024-09-20 17:15] LABS: ALBUMIN 3.5 G/DL (3.2-5.2); ALKALINE PHOSPHATASE 101 U/L (40-129); ALT/SGPT 18 U/L (7.0-40); AST/SGOT 11 U/L (<34); BILIRUBIN,TOTAL 0.5 MG/DL (0.3-1.2); BLOOD UREA NITROGEN 14 MG/DL (9-23); CALCIUM LEVEL 8.5 MG/DL (8.3-10.6); CARBON DIOXIDE LEVEL 28 MMOL/L (20-31); CHLORIDE LEVEL 102 MMOL/L (98-107); CHOLESTEROL LEVEL 224 MG/DL (<200); CHOLESTEROL RISK RATIO 3.63 (<5); CREATININE FOR GFR 0.75 MG/DL (0.70-1.30); GLOMERULAR FILTRATION RATE > 60.0 (>49); GLUCOSE, FASTING 285 MG/DL (74-106); HDL CHOLESTEROL 61.7 MG/DL (>40); LDL CHOLESTEROL 132.7 MG/DL (<100); MAGNESIUM LEVEL 1.4 MG/DL (1.8-2.4); NON-HDL-C 162.3 MG/DL; POTASSIUM SERUM 4.7 MMOL/L (3.5-5.1); SODIUM LEVEL 136 MMOL/L (136-145); TOTAL PROTEIN 6.9 G/DL (5.7-8.2); TRIGLYCERIDES LEVEL 148 MG/DL (<150)
== END ==
LOC: M SFHCCAPE 07:19
PROVIDERS: ATTEND Physician Assistant Medical
DX: Z12.5 Encounter for screening for malignant neoplasm of prostate (principal); E11.65 Type 2 diabetes mellitus with hyperglycemia; E78.2 Mixed hyperlipidemia; E83.42 Hypomagnesemia

== ENCOUNTER → 2024-11-26 | Outpatient (CLI) | payer OTHER ==
[~2024-11-26] MED LIST changes: +PROHANCE 279.3MG/ML 15ML VIAL As Ordered ONE
== END ==
LOC: M RAD 08:20
PROVIDERS: ATTEND Physician Assistant Medical
DX: K86.2 Cyst of pancreas (principal)
CPT/HCPCS: 74183; A9576

== ENCOUNTER → 2025-03-24 | Outpatient (REF) | payer OTHER ==
[~2025-03-24] MED LIST changes: -PROHANCE 279.3MG/ML 15ML VIAL As Ordered ONE
[2025-03-24 18:37] LABS: ALT/SGPT 20 U/L (7.0-40); AST/SGOT 16 U/L (<34); CALCIUM LEVEL 9.2 MG/DL (8.3-10.6); CARBON DIOXIDE LEVEL 30 MMOL/L (20-31); CHLORIDE LEVEL 102 MMOL/L (98-107); CREATININE FOR GFR 0.93 MG/DL (0.70-1.30); GLOMERULAR FILTRATION RATE > 90.0 (>49); MAGNESIUM LEVEL 1.5 MG/DL (1.8-2.4); POTASSIUM SERUM 5.1 MMOL/L (3.5-5.1); SODIUM LEVEL 140 MMOL/L (136-145)
[2025-03-24 19:26] LABS: ESTIMATED AVERAGE GLUCOSE 166.0 MG/DL (60-110)
== END ==
LOC: M SFHCCAPE 07:09
PROVIDERS: ATTEND Physician Assistant Medical
DX: E83.42 Hypomagnesemia (principal); E11.65 Type 2 diabetes mellitus with hyperglycemia

== ENCOUNTER → 2025-04-27 | Outpatient (CLI) | payer OTHER | LOC: M CLY 13:51 | PROVIDERS: ATTEND Physician Assistant Medical | DX: M25.512 Pain in left shoulder (principal); M19.012 Primary osteoarthritis, left shoulder ==

== ENCOUNTER → 2025-06-07 | Outpatient (CLI) | payer OTHER | LOC: M CARPUL 15:24 | PROVIDERS: ATTEND Physician Assistant Medical | DX: R07.9 Chest pain, unspecified (principal) ==